=== PATIENT | female | born 1955 | race Caucasian/White ===

== ENCOUNTER → 2022-01-21 | Outpatient (CLI) | payer MEDICARE | LOC: MC.RAD 11:08 | DX: Z12.31 Encounter for screening mammogram for malignant neoplasm of breast (principal) ==

== ENCOUNTER → 2023-11-25 | Outpatient (CLI) | payer MEDICARE | LOC: MC.RAD 13:48 | DX: Z12.31 Encounter for screening mammogram for malignant neoplasm of breast (principal) ==